=== PATIENT | female | born 1955 | race Caucasian/White ===

== ENCOUNTER → 2016-10-09 | Outpatient (CLI) | payer MEDICARE, OTHER | LOC: LAB.O 14:36 | PROVIDERS: ATTEND Nurse Practitioner Family | DX: R19.7 Diarrhea, unspecified (principal); R10.10 Upper abdominal pain, unspecified; E03.9 Hypothyroidism, unspecified ==

== ENCOUNTER → 2016-10-15 | Outpatient (CLI) | payer MEDICARE, OTHER | LOC: LAB.O 09:28 | PROVIDERS: ATTEND Nurse Practitioner Family | DX: R19.7 Diarrhea, unspecified (principal); R10.10 Upper abdominal pain, unspecified; E03.9 Hypothyroidism, unspecified ==

== ENCOUNTER → 2017-02-07 | Outpatient (CLI) | payer MEDICARE, OTHER ==
--- NOTE | 2017-02-07 14:27 | RAD ---
EXAM DESCRIPTION: Shoulder,Right 2 or More Views CLINICAL HISTORY: 61 years, Female, SHOULDER PAIN COMPARISON: None. FINDINGS: No fracture or dislocation. Subacromial space almost completely lost compatible chronic rotator cuff injury. Mild acromioclavicular degenerative change. IMPRESSION: No fracture or dislocation. Probable chronic rotator cuff injury Electronically signed by: Lane Holman MD 02/07/2017 2:26 PM CDT
--- NOTE | 2017-02-07 14:29 | RAD ---
EXAM DESCRIPTION: Hip,Right 2 Views CLINICAL HISTORY: 61 years, Female, HIP PAIN COMPARISON: None. FINDINGS: No definite fracture or dislocation. Moderate narrowing superolaterally with spurring and sclerosis. Slight irregularity of the lateral femoral head neck junction is a normal variant often associated with impingement. IMPRESSION: Fairly advanced arthritic narrowing of the hip joint particularly laterally with spurring. No fracture or dislocation Electronically signed by: Lane Holman MD 02/07/2017 2:27 PM CDT
--- NOTE | 2017-02-07 14:31 | RAD ---
EXAM DESCRIPTION: Pelvis CLINICAL HISTORY: 61 years, Female, HIP PAIN COMPARISON: None. FINDINGS: No fracture. Moderate degenerative narrowing of both hips, more on right. Pelvic ring intact. Degenerative changes lower lumbar spine. IMPRESSION: Degenerative changes of both hips more on the right. No fracture. Electronically signed by: Lane Holman MD 02/07/2017 2:30 PM CDT
== END | disposition home or self-care (01) ==
LOC: RAD 07:19
PROVIDERS: ATTEND Orthopaedic Surgery
DX: M25.551 Pain in right hip (principal); M25.511 Pain in right shoulder

== ENCOUNTER → 2017-02-12 | Outpatient (CLI) | payer MEDICARE, OTHER | END | disposition home or self-care (01) | LOC: LAB.O 14:59 | PROVIDERS: ATTEND Nurse Practitioner Family | DX: I10 Essential (primary) hypertension (principal); E53.8 Deficiency of other specified B group vitamins; E03.9 Hypothyroidism, unspecified ==

== ENCOUNTER → 2017-07-02 | Outpatient (CLI) | payer MEDICARE, OTHER ==
--- NOTE | 2017-07-03 16:51 | RAD ---
EXAM DESCRIPTION: Hip,Right 2 Views CLINICAL HISTORY: 61 years, Female, RT HIP PAIN COMPARISON: February 07, 2017 TECHNIQUE: AP and frog leg lateral views of the hip FINDINGS: AP and frog leg lateral views right hip shows severe arthritic changes of the right hip joint with complete loss of the joint space. Subchondral eburnation is observed. There is no fracture or bone lesion. IMPRESSION: 1. Advanced severe osteoarthritis right hip Electronically signed by: Osmar Gunn MD 07/03/2017 4:49 PM CDT
== END | disposition home or self-care (01) ==
LOC: RAD 10:27
PROVIDERS: ATTEND Nurse Practitioner Family
DX: M25.551 Pain in right hip (principal)

== ENCOUNTER → 2017-10-16 | Outpatient (CLI) | payer MEDICARE, OTHER | LOC: LAB.O 11:08 | PROVIDERS: ATTEND Orthopaedic Surgery | DX: Z51.81 Encounter for therapeutic drug level monitoring (principal); Z98.890 Other specified postprocedural states ==

== ENCOUNTER → 2017-10-20 | Outpatient (CLI) | payer MEDICARE, OTHER | LOC: LAB.O 09:53 | PROVIDERS: ATTEND Orthopaedic Surgery | DX: Z51.81 Encounter for therapeutic drug level monitoring (principal); Z96.641 Presence of right artificial hip joint ==

== ENCOUNTER → 2017-10-23 | Outpatient (CLI) | payer MEDICARE, OTHER | LOC: LAB.O 09:59 | PROVIDERS: ATTEND Orthopaedic Surgery | DX: Z51.81 Encounter for therapeutic drug level monitoring (principal) ==

== ENCOUNTER → 2017-10-27 | Outpatient (CLI) | payer MEDICARE, OTHER | LOC: LAB.O 12:08 | PROVIDERS: ATTEND Orthopaedic Surgery | DX: Z51.81 Encounter for therapeutic drug level monitoring (principal); Z98.890 Other specified postprocedural states; Z96.641 Presence of right artificial hip joint ==

== ENCOUNTER → 2017-12-03 | Outpatient (CLI) | payer MEDICARE, OTHER | LOC: LAB.O 10:59 | PROVIDERS: ATTEND Nurse Practitioner Family | DX: R29.898 Other symptoms and signs involving the musculoskeletal system (principal); E11.9 Type 2 diabetes mellitus without complications ==

== ENCOUNTER → 2017-12-05 | Outpatient (CLI) | payer MEDICARE, OTHER | LOC: LAB.O 09:31 | PROVIDERS: ATTEND Nurse Practitioner Family | DX: E87.6 Hypokalemia (principal) ==

== ENCOUNTER → 2017-12-09 | Outpatient (CLI) | payer MEDICARE, OTHER | LOC: LAB.O 10:21 | PROVIDERS: ATTEND Nurse Practitioner Family | DX: E87.6 Hypokalemia (principal); D72.828 Other elevated white blood cell count; Z51.81 Encounter for therapeutic drug level monitoring ==

== ENCOUNTER → 2017-12-12 | Outpatient (CLI) | payer MEDICARE, OTHER ==
--- NOTE | 2017-12-12 17:11 | RAD ---
EXAM DESCRIPTION: Hip,Right 2 Views CLINICAL HISTORY: HIP INJURY COMPARISON: None. TECHNIQUE: 4 views right FINDINGS: A right total hip arthroplasty is observed in place. Positioning is anatomic. No fracturing is detected. IMPRESSION: Right total hip arthroplasty. No fracturing is detected. Electronically signed by: Petr Welsh MD 12/12/2017 5:08 PM CDT
== END ==
LOC: RAD 16:28
PROVIDERS: ATTEND Nurse Practitioner Family
DX: S76.001A Unspecified injury of muscle, fascia and tendon of right hip, initial encounter (principal)

== ENCOUNTER → 2018-07-30 | Outpatient (CLI) | payer MEDICARE, OTHER ==
--- NOTE | 2018-07-30 16:05 | RAD ---
PROCEDURE: Ribs,Left 2 Views Clinical History: LEFT SIDED RIB FXS Indication: Same as above Comparison: None . Technique: Two Views of the left sided ribs were done Findings: There is a probable nondisplaced fracture at the costochondral junction of the left fifth rib The left clavicle and the adjacent shoulder joint do not show any evidence of bony trauma. There is no visualization of any periosteal reactions. There are no discrete airspace infiltrates, pneumothoraces or pleural effusions in the visualized lung velasquez. The soft tissues are radiographically unremarkable. There is no visualization of any radiopaque foreign bodies in the evaluated soft tissues. Nondisplaced acute rib fractures are frequently radiographically occult. Impression: There is a probable nondisplaced fracture at the costochondral junction of the left fifth rib Location of Interpretation: Teleradiology Electronically signed by: Jordan Dykes MD 07/30/2018 4:03 PM [facility] Workstation: [id number]
== END ==
LOC: RAD 15:09
PROVIDERS: ATTEND Nurse Practitioner Family
DX: S22.42XA Multiple fractures of ribs, left side, initial encounter for closed fracture (principal)

== ENCOUNTER 2018-09-10 17:41 | Emergency (ER) | payer MEDICARE, OTHER ==
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
[2018-09-10] MEDS ORDERED: SODIUM CHLORIDE 0.9% 1000ML 1,000 ML IVS ONE ×2 (18:04→19:19)
[2018-09-10] MEDS ORDERED: MORPHINE SULFATE INJ 10 MG/ML VIAL IV ONE (18:20)
--- NOTE | 2018-09-10 18:50 | RAD ---
EXAM: Right shoulder two views CLINICAL INDICATION: Right shoulder pain COMPARISON: 02/07/2017 FINDINGS: Two views of the right shoulder reveal no acute fracture or dislocation. There are mild degenerative changes of the AC joint. The osseous structures are otherwise intact and unremarkable. IMPRESSION: No acute fracture or dislocation. Electronically signed by: Jair Ceja MD 09/10/2018 6:49 PM [facility]
--- NOTE | 2018-09-10 18:50 | RAD ---
EXAM: Hand,Right 3 Views CLINICAL INDICATION: Right hand trauma, pain COMPARISON: There is no previous study for comparison. FINDINGS: Three views of the right hand reveal no acute fracture or dislocation. There are moderate degenerative changes of the first carpometacarpal joint and mild to moderate degenerative changes of the interphalangeal joints of the fingers and thumb. The osseous structures are otherwise intact and unremarkable. IMPRESSION: Degenerative changes as described above. No fracture or acute process. Electronically signed by: Jair Ceja MD 09/10/2018 6:48 PM [facility]
--- NOTE | 2018-09-10 18:51 | RAD ---
EXAM: Knee,Right Complete CLINICAL INDICATION: Right knee pain COMPARISON: There is no previous study for comparison. FINDINGS: Three views of the right knee reveal postsurgical changes from knee arthroplasty. The arthroplasty components appear to be in the expected position and alignment. The joint spaces are preserved. There is no evidence of any abnormal periprosthetic lucency, fracture, knee joint effusion, foreign body, bony destruction, or other complication. IMPRESSION: Postsurgical changes from right knee arthroplasty with no radiographic evidence of any complication at this time. Electronically signed by: Jair Ceja MD 09/10/2018 6:49 PM [facility]
--- NOTE | 2018-09-10 19:45 | CT ---
EXAM: Head CLINICAL INDICATION: Trauma, head pain COMPARISON: There is no previous study for comparison. TECHNIQUE: The CT scan was done using contiguous axial 5 mm sections through the brain. This exam was performed according to our departmental dose-optimization program, which includes automated exposure control, adjustment of the mA and/or kV according to patient size and/or use of iterative reconstruction technique. FINDINGS: There is no midline shift, mass effect, or extraaxial fluid collection. There is no evidence of acute intracranial hemorrhage, mass lesion, or cerebral edema. The ventricles and cortical sulci are normal for the patient's age. Bone window images reveal no evidence of a skull fracture. IMPRESSION: No evidence of an acute intracranial process. Electronically signed by: Jair Ceja MD 09/10/2018 7:44 PM [employer]
--- NOTE | 2018-09-10 19:46 | CT ---
EXAM: Cervical Spine CLINICAL INDICATION: Trauma, pain COMPARISON: There is no previous study for comparison. TECHNIQUE: The CT scan was done using contiguous axial 3mm sections through the cervical spine with sagittal and coronal reconstructions. This exam was performed according to our departmental dose-optimization program, which includes automated exposure control, adjustment of the mA and/or kV according to patient size and/or use of iterative reconstruction technique. FINDINGS: There is no fracture or subluxation. The prevertebral soft tissues are normal. The bilateral facet joint alignment is normal. Moderate degenerative disease is noted at the C5-6 level manifested by disc space narrowing. The osseous structures otherwise appear intact and unremarkable. IMPRESSION: No evidence of acute traumatic injury. Electronically signed by: Jair Ceja MD 09/10/2018 7:45 PM [employer]
--- NOTE | 2018-09-10 19:52 | CT ---
EXAM DESCRIPTION: Abdomen/Pelvis w/Contrast (accession [id number]), Chest w/Contrast (accession [id number]) CLINICAL HISTORY:62 years Female, TRAUMA Comparison: None TECHNIQUE: Contiguous axial CT images of the chest. Sagittal and coronal reformats were obtained. This exam was performed according to our departmental dose-optimization program, which includes automated exposure control, adjustment of the mA and/or kV according to patient size and/or use of iterative reconstruction technique. FINDINGS: Lungs: No focal lung consolidation. No pleural effusion. No pneumothorax. Thoracic aorta: Unremarkable. Heart: Unremarkable. Mediastinum: No pathologic sized middle mediastinal lymphadenopathy. Tracheobronchial tree: Unremarkable. Bones: Fractures involving the lateral right fourth, fifth, sixth, seventh ribs. Multiple old left rib fractures. Soft tissues: Unremarkable IMPRESSION: Multiple lateral right rib fractures. No pneumothorax. EXAM DESCRIPTION: Abdomen/Pelvis w/Contrast (accession [id number]), Chest w/Contrast (accession [id number]) CLINICAL HISTORY:62 years Female, TRAUMA Comparison: None TECHNIQUE: Contiguous axial images of the abdomen and pelvis were obtained followed by reconstruction images. This exam was performed according to our departmental dose-optimization program, which includes automated exposure control, adjustment of the mA and/or kV according to patient size and/or use of iterative reconstruction technique. FINDINGS: Liver:Unremarkable. No focal liver lesion. Gallbladder:Cholecystectomy clips seen in gallbladder fossa. Spleen:Unremarkable Pancreas: Pancreas is unremarkable. Adrenal glands:Within normal limits. Kidneys/ureters:Within normal limits Bladder:Unremarkable. Pelvic organs: No acute abnormality Vascular structures: within normal limits Peritoneum: No free fluid. Lymph nodes: No abnormal lymph nodes. Stomach/small bowel/colon: Moderate size hiatal hernia. Small bowel is unremarkable. Marked colonic stool. No bowel wall thickening. Appendix: No evidence of appendicitis. Bones: No acute osseous abnormality. Right hip arthroplasty. Soft tissues: Unremarkable.. IMPRESSION: No acute intra-abdominal abnormality. Electronically signed by: Scooter Trivedi DO 09/10/2018 7:51 PM [facility]
--- NOTE | 2018-09-10 19:52 | CT ---
EXAM DESCRIPTION: Abdomen/Pelvis w/Contrast (accession [id number]), Chest w/Contrast (accession [id number]) CLINICAL HISTORY:62 years Female, TRAUMA Comparison: None TECHNIQUE: Contiguous axial CT images of the chest. Sagittal and coronal reformats were obtained. This exam was performed according to our departmental dose-optimization program, which includes automated exposure control, adjustment of the mA and/or kV according to patient size and/or use of iterative reconstruction technique. FINDINGS: Lungs: No focal lung consolidation. No pleural effusion. No pneumothorax. Thoracic aorta: Unremarkable. Heart: Unremarkable. Mediastinum: No pathologic sized middle mediastinal lymphadenopathy. Tracheobronchial tree: Unremarkable. Bones: Fractures involving the lateral right fourth, fifth, sixth, seventh ribs. Multiple old left rib fractures. Soft tissues: Unremarkable IMPRESSION: Multiple lateral right rib fractures. No pneumothorax. EXAM DESCRIPTION: Abdomen/Pelvis w/Contrast (accession [id number]), Chest w/Contrast (accession [id number]) CLINICAL HISTORY:62 years Female, TRAUMA Comparison: None TECHNIQUE: Contiguous axial images of the abdomen and pelvis were obtained followed by reconstruction images. This exam was performed according to our departmental dose-optimization program, which includes automated exposure control, adjustment of the mA and/or kV according to patient size and/or use of iterative reconstruction technique. FINDINGS: Liver:Unremarkable. No focal liver lesion. Gallbladder:Cholecystectomy clips seen in gallbladder fossa. Spleen:Unremarkable Pancreas: Pancreas is unremarkable. Adrenal glands:Within normal limits. Kidneys/ureters:Within normal limits Bladder:Unremarkable. Pelvic organs: No acute abnormality Vascular structures: within normal limits Peritoneum: No free fluid. Lymph nodes: No abnormal lymph nodes. Stomach/small bowel/colon: Moderate size hiatal hernia. Small bowel is unremarkable. Marked colonic stool. No bowel wall thickening. Appendix: No evidence of appendicitis. Bones: No acute osseous abnormality. Right hip arthroplasty. Soft tissues: Unremarkable.. IMPRESSION: No acute intra-abdominal abnormality. Electronically signed by: Scooter Trivedi DO 09/10/2018 7:[address] [facility]
[2018-09-10] MEDS ORDERED: MORPHINE SULFATE INJ 10 MG/ML VIAL IV PRN (20:32)
[2018-09-10 20:57] VITALS: TEMP 97.1; O2SAT 99
[2018-09-10] MEDS ORDERED: NEOMYCIN-BACITRACIN-POLYMYXIN 0.9 GM UD TOP ONE (20:59)
[2018-09-10 21:26] VITALS: BP 143/70
== END 2018-09-10 21:26 | disposition short-term general hospital (02) ==
LOC: ER 17:41
DX: S22.41XA Multiple fractures of ribs, right side, initial encounter for closed fracture (principal); S40.211A Abrasion of right shoulder, initial encounter; M79.641 Pain in right hand; M25.561 Pain in right knee; M50.322 Other cervical disc degeneration at C5-C6 level; R51 Headache; J45.909 Unspecified asthma, uncomplicated; I10 Essential (primary) hypertension; E07.9 Disorder of thyroid, unspecified; Z88.0 Allergy status to penicillin; Y92.89 Other specified places as the place of occurrence of the external cause; V98.8XXA Other specified transport accidents, initial encounter
CPT/HCPCS: 70450; 71260; 72125; 73030; 73130; 73562; 74177; 80053; 81001; 83690; 85025; J2270; J7030

== ENCOUNTER 2018-09-14 16:40 | Emergency (ER) | payer MEDICARE, OTHER ==
[2018-09-14 17:05] VITALS: TEMP 99.7; O2SAT 99
--- NOTE | 2018-09-14 17:40 | CT ---
PROCEDURE: CT Head Without Intravenous Contrast CLINICAL INDICATION: The patient is 62 years old and is Female; head injury TECHNIQUE: Axial computed tomography images of the head/brain without intravenous contrast. Sagittal and coronal reformatted images were created and reviewed. This CT exam was performed using one or more of the following dose reduction techniques: automated exposure control, adjustment of the mA and/or kV according to patient size, and/or use of iterative reconstruction technique. COMPARISON: September 10, 2018 FINDINGS: LIMITATIONS: Portions of the examination limited due to beam hardening artifact. BRAIN: No hemorrhage. No significant white matter disease. No edema. VENTRICLES: Normal. No ventriculomegaly. BONES/JOINTS: Normal. No acute fracture. SOFT TISSUES: Normal. SINUSES: Unremarkable as visualized. No acute sinusitis. MASTOID AIR CELLS: Unremarkable as visualized. No mastoid effusion. IMPRESSION: No acute intracranial abnormality. Electronically signed by: Pradeep Carpenter MD 09/14/2018 5:39 PM [facility]
[2018-09-14] MEDS ORDERED: traMADol HCL 50 MG (ER DISP) # 6 TABS PO ONE (17:59)
[2018-09-14] MEDS ORDERED: traMADol 37.5MG/APAP 325MG 1 EA TAB PO ONE (17:59)
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
[2018-09-14 19:09] VITALS: BP 139/81
== END 2018-09-14 18:15 | disposition home or self-care (01) ==
LOC: ER 16:40
DX: S09.90XA Unspecified injury of head, initial encounter (principal); J45.909 Unspecified asthma, uncomplicated; I10 Essential (primary) hypertension; E07.9 Disorder of thyroid, unspecified; Y92.810 Car as the place of occurrence of the external cause; W22.8XXA Striking against or struck by other objects, initial encounter; Z88.0 Allergy status to penicillin

== ENCOUNTER → 2018-12-01 | Outpatient (CLI) | payer MEDICARE, OTHER ==
--- NOTE | 2018-12-01 11:47 | RAD ---
EXAM DESCRIPTION: Chest,2 Views CLINICAL HISTORY: HYPERTENSION COMPARISON: Previous study July 30, [address] chest September 10, 2018 TECHNIQUE: PA/lateral FINDINGS: Old healed rib fractures on the right. Hiatal hernia behind the heart. Heart size is normal with normal pulmonary vascularity. No pleural effusion or pneumothorax. Lungs are clear with no consolidating infiltrate. Lateral view shows intact sternum and spurring in the mid to lower T-spine with old lower thoracic compression. IMPRESSION: No acute process is identified in the chest. Electronically signed by: Carlton Toribio MD 12/01/2018 11:44 AM CDT
== END ==
LOC: LAB.O 10:35
PROVIDERS: ATTEND Nurse Practitioner Family
DX: I10 Essential (primary) hypertension (principal)

== ENCOUNTER → 2019-08-12 | Outpatient (CLI) | payer MEDICARE, OTHER | LOC: LAB.O 10:38 | PROVIDERS: ATTEND Registered Nurse General Practice | DX: R60.0 Localized edema (principal); R53.1 Weakness ==

== ENCOUNTER → 2019-08-23 | Outpatient (CLI) | payer MEDICARE, OTHER | LOC: LAB.O 16:58 | PROVIDERS: ATTEND Nurse Practitioner Family | DX: I50.89 Other heart failure (principal) ==

== ENCOUNTER → 2019-09-30 | Outpatient (CLI) | payer MEDICARE, OTHER ==
--- NOTE | 2019-09-30 16:03 | RAD ---
EXAM DESCRIPTION: Foot,Right 3 Views CLINICAL HISTORY: 63 years Female, BUNION COMPARISON: None. 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 Osteopenia. Lisfranc alignment is maintained. No acute fracture or dislocation. Severe midfoot and tibiotalar osteoarthritis. Os trigonum. Calcaneal enthesophytes. IMPRESSION: No evidence of acute osseous abnormality. Electronically signed by: Tremaine Goldman MD 09/30/2019 4:01 PM [facility]
--- NOTE | 2019-09-30 16:07 | RAD ---
EXAM DESCRIPTION: Foot,Left 3 Views CLINICAL HISTORY: 63 years Female, BUNION COMPARISON: None. Findings: Three radiographs Metatarsus primum varus hallux valgus with soft tissue bunion. Osteopenia. Pes planus. Severe midfoot and tibiotalar osteoarthritis. Calcaneal enthesophytes. Suspect a subacute nondisplaced fourth metatarsal base fracture. Lisfranc alignment is maintained. IMPRESSION: Suspect a subacute nondisplaced fourth metatarsal base fracture. Electronically signed by: Tremaine Goldman MD 09/30/2019 4:05 PM [facility]
== END ==
LOC: RAD 11:54
PROVIDERS: ATTEND Podiatrist Foot & Ankle Surgery
DX: M20.11 Hallux valgus (acquired), right foot (principal); M20.12 Hallux valgus (acquired), left foot; M20.41 Other hammer toe(s) (acquired), right foot; M20.42 Other hammer toe(s) (acquired), left foot; M21.611 Bunion of right foot; M21.612 Bunion of left foot

== ENCOUNTER → 2019-12-14 | Outpatient (CLI) | payer MEDICARE, OTHER | LOC: LAB.O 16:10 | PROVIDERS: ATTEND Registered Nurse General Practice | DX: R53.83 Other fatigue (principal) ==

== ENCOUNTER 2020-02-25 15:53 | Emergency (ER) | payer MEDICARE, OTHER ==
--- NOTE | 2020-02-25 15:57 | ED.PDOC ---
History of Present Illness - General Chief Complaint: Neck Injury/Pain Stated Complaint: Fatigue Time Seen by Provider: 02/25/20 15:57 Source: patient, RN notes reviewed, Vital Signs reviewed Exam Limitations: no limitations - History of Present Illness Initial Comments: This is a 64-year-old female with history of gastric sleeve surgery performed in November 2019. She is presenting today with generalized weakness, fatigue, malaise ongoing since her surgery in November. She is followed up with her primary care doctor several times and had blood work drawn, no causes been clearly identified. She does have a history of anemia and has received transfusions before in the past. She denies any vomiting blood, blood in stool. She denies any fever, chest pain, shortness of breath. She does state that she gets dizzy whenever she goes from sitting to standing or bends over too quickly. She denies any syncopal episodes. She is here because she read on a [place] support group that "IV therapy" helps with the symptoms, but she does not know what medication/therapy was given to these patients. Allergies/Adverse Reactions: Allergies Penicillins Allergy (Verified 02/25/20 16:16) Home Medications: Ambulatory Orders Tramadol HCl [Ultram] 50 mg PO TID PRN 09/14/18 Desvenlafaxine Succinate [Desvenlafaxine ER] 100 mg PO DAILY 02/25/20 Fluticasone/Salmeterol 250/50 [Advair Diskus] 1 puff INH BID 02/25/20 Gabapentin [Neurontin] 100 mg PO QAM 02/25/20 Gabapentin [Neurontin] 200 mg PO QPM 02/25/20 Lubiprostone [Amitiza] 24 mcg PO DAILY 02/25/20 Magnesium Oxide [Mag-Ox Tab] 400 mg PO DAILY #60 tab 02/25/20 Potassium Chloride [K-Tab] 90 meq PO DAILY 02/25/20 Potassium Phosphate Monobasic [K-Phos] 500 mg PO Q6H #120 tab 02/25/20 Progesterone Micronized [Progesterone] 200 mg PO BID 02/25/20 RX: Hydrochlorothiazide 12.5 mg PO DAILY 02/25/20 Thyroid [Sap Developer Thyroid 90] 180 mg PO DAILY 02/25/20 Review of Systems - Review of Systems Constitutional: States: malaise. Denies: chills, diaphoresis, fever EENTM: Denies: ear pain, nose congestion, throat pain, throat swelling, mouth pain Respiratory: Denies: orthopnea, short of breath, stridor, wheezing Cardiology: Denies: chest pain, edema, palpitations, syncope Gastrointestinal/Abdominal: Denies: abdominal pain, constipation, nausea, vomiting Genitourinary: Denies: dysuria, hematuria Musculoskeletal: Denies: joint pain, joint swelling, muscle pain, muscle stiffness Skin: Denies: lesions, rash Neurological: States: other - Lightheadedness. Denies: headache, numbness, paresthesia, tingling, weakness Endocrine: States: no symptoms reported Hematologic/Lymphatic: States: no symptoms reported Past Medical History (General) - Patient Medical History Hx Seizures: No Hx Stroke: No Hx Dementia: No Hx Asthma: Yes Hx of COPD: No Hx Cardiac Disorders: No Hx Congestive Heart Failure: No Hx Pacemaker: No Hx Hypertension: Yes Hx Thyroid Disease: Yes Hx Diabetes: No Hx Gastroesophageal Reflux: No - IBS Hx Renal Disease: No Hx Cancer: No Hx of HIV: No Hx Hepatitis C: No Hx MRSA: No - Vaccination History Hx Tetanus, Diphtheria Vaccination: Yes Hx Influenza Vaccination: No Hx Pneumococcal Vaccination: No - Social History Hx Tobacco Use: No Hx Chewing Tobacco Use: No Hx Alcohol Use: No Hx Substance Use: No Hx Substance Use Treatment: No Hx Depression: No Hx Physical Abuse: No Hx Emotional Abuse: No Hx Suspected Abuse: No Family Medical History - Family History Mother Family History: Unknown Physical Exam - Physical Exam General Appearance: Alert, Comfortable, Obese Eye Exam: bilateral normal Ears, Nose, Throat: hearing grossly normal, normal ENT inspection Neck: non-tender, full range of motion, supple Respiratory: chest non-tender, lungs clear, normal breath sounds Cardiovascular/Chest: regular rate, rhythm, no edema, no gallop, no JVD Gastrointestinal/Abdominal: non tender, soft Back Exam: normal inspection, no CVA tenderness, no vertebral tenderness Extremity: normal range of motion, non-tender, normal inspection Neurologic: no motor/sensory deficits, alert, normal mood/affect, oriented x 3 Skin Exam: normal color, warm/dry Progress - Progress Progress: 02/25/20 19:28 Rechecked. Discussed lab findings and plan for discharge home. Recommended follow-up with PCP in 3 to 5 days for recheck and to discuss low TSH levels and possible adjustment of her thyroid medication. Will start potassium phosphate as well as magnesium supplement. Recommended recheck these electrolytes next week. Strict warnings given to return the emergency room for worsening fatigue, syncope, chest pain, shortness of breath, or any other concerns DDX: Dehydration, renal failure, anemia, electrolyte disorder, rhabdomyolysis 64-year-old female with history of gastric sleeve surgery presenting with chronic, unremitting fatigue ongoing since November of this year just after surgery. Her potassium and phosphate today are low. Potassium is low end of normal, despite taking high-dose p.o. supplementation of potassium. It is unclear whether this is related to her hydrochlorothiazide or malabsorption from gastric sleeve, felt more likely multifactorial. Recommended follow-up with PCP in 3 to 5 days for recheck. Strict warnings given to return the emergency room for worsening symptoms. Magdaleno Harper DO [facility] #[id number] - Results/Orders Results/Orders: EKG reviewed by me at 1619. Sinus rhythm rate of 88, left axis, normal intervals, LVH, no acute ischemic changes EXAM DESCRIPTION: Chest,1 View CLINICAL HISTORY: fatigue COMPARISON: December 01, 2018 IMPRESSION: Single AP portable upright view of the chest shows cardiac silhouette and pulmonary vasculature to be within normal limits. Lungs are normally aerated and clear. No obvious pleural effusion or pneumothorax is seen. Right reverse shoulder arthroplasty changes are seen. Remote healed right-sided rib fracture is seen. Electronically signed by: Augustine Gusman MD 02/25/2020 4:32 PM CDT 02/25/20 16:08 Pulse Oximetry Assessment DAILY 02/25/20 16:15 EKG STAT Laboratory Results - last 24 hr 02/25/20 02/25/20 02/25/20 16:46 16:57 16:57 WBC 7.0 RBC 4.06 L Hgb 12.6 Hct 37.8 MCV 93.0 MCH 31.1 H MCHC 33.4 RDW 14.5 Plt Count 221 MPV 8.7 Absolute Neuts (auto) 4.50 Absolute Lymphs (auto) 1.60 Absolute Monos (auto) 0.70 Absolute Eos (auto) 0.20 Absolute Basos (auto) 0.00 Neutrophils % 64.0 Lymphocytes % 22.2 Monocytes % 10.1 H Eosinophils % 3.4 Basophils % 0.3 Sodium 136 Potassium 3.6 Chloride 113 H Carbon Dioxide 18 L Anion Gap 8.6 L BUN 17 Creatinine 0.91 BUN/Creatinine Ratio 18.7 Random Glucose 128 H Serum Osmolality 275.1 Calcium 8.7 Phosphorus 2.0 L Magnesium 1.7 L Total Bilirubin 0.5 AST 20 ALT 18 Alkaline Phosphatase 145 H Creatine Kinase Troponin I 0.02 B-Natriuretic Peptide 125.0 H Serum Total Protein 6.1 L Albumin 3.2 Globulin 2.9 Albumin/Globulin Ratio 1.1 TSH < 0.06 L Free T4 Urine Color Urine Appearance Urine pH Ur Specific [place] Urine Protein Urine Glucose (UA) Urine Ketones Urine Blood Urine Nitrite Urine Bilirubin Urine Urobilinogen Ur Leukocyte Esterase Urine RBC Urine WBC Ur Epithelial Cells Urine Bacteria Urine Yeast 02/25/20 02/25/20 02/25/20 16:57 17:20 17:50 WBC RBC Hgb Hct MCV MCH MCHC RDW Plt Count MPV Absolute Neuts (auto) Absolute Lymphs (auto) Absolute Monos (auto) Absolute Eos (auto) Absolute Basos (auto) Neutrophils % Lymphocytes % Monocytes % Eosinophils % Basophils % Sodium Potassium Chloride Carbon Dioxide Anion Gap BUN Creatinine BUN/Creatinine Ratio Random Glucose Serum Osmolality Calcium Phosphorus Magnesium Total Bilirubin AST ALT Alkaline Phosphatase Creatine Kinase 19 L Troponin I B-Natriuretic Peptide Serum Total Protein Albumin Globulin Albumin/Globulin Ratio TSH Free T4 1.16 Urine Color Yellow Urine Appearance Sl cloudy Urine pH 5.5 Ur Specific [place] >= 1.030 Urine Protein Negative Urine Glucose (UA) Negative Urine Ketones Negative Urine Blood Trace-lysed H Urine Nitrite Negative Urine Bilirubin Negative Urine Urobilinogen 0.2 Ur Leukocyte Esterase Trace H Urine RBC 0-1 Urine WBC 3-5 H Ur Epithelial Cells 10-20 Urine Bacteria Rare Urine Yeast Rare Departure - Departure Clinical Impression: Hypomagnesemia, Hypophosphatemia, S/P gastric surgery, Low thyroid stimulating hormone (TSH) level Fatigue Qualifiers: Fatigue type: unspecified Qualified Code(s): R53.83 - Other fatigue Disposition: Discharge to Home or Self Care Condition: Good Departure Forms: ED Discharge - Pt. Copy, Patient Portal Self Enrollment Instructions: Fatigue (DC), Low Magnesium Level (DC) Referrals: SIMON VALDIVIA IV, HUM[employer] RELATIONS TEACHER [Primary Care Provider] - 1-5 Days Prescriptions: Magnesium Oxide [Mag-Ox Tab] 400 mg PO DAILY #60 tab Potassium Phosphate Monobasic [K-Phos] 500 mg PO Q6H #120 tab Home Medications: Ambulatory Orders Tramadol HCl [Ultram] 50 mg PO TID PRN 09/14/18 Desvenlafaxine Succinate [Desvenlafaxine ER] 100 mg PO DAILY 02/25/20 Fluticasone/Salmeterol 250/50 [Advair Diskus] 1 puff INH BID 02/25/20 Gabapentin [Neurontin] 100 mg PO QAM 02/25/20 Gabapentin [Neurontin] 200 mg PO QPM 02/25/20 Lubiprostone [Amitiza] 24 mcg PO DAILY 02/25/20 Magnesium Oxide [Mag-Ox Tab] 400 mg PO DAILY #60 tab 02/25/20 Potassium Chloride [K-Tab] 90 meq PO DAILY 02/25/20 Potassium Phosphate Monobasic [K-Phos] 500 mg PO Q6H #120 tab 02/25/20 Progesterone Micronized [Progesterone] 200 mg PO BID 02/25/20 RX: Hydrochlorothiazide 12.5 mg PO DAILY 02/25/20 Thyroid [Sap Developer Thyroid 90] 180 mg PO DAILY 02/25/20
[2020-02-25] MEDS ORDERED: SODIUM CHLORIDE 0.9% (FLUSH) 10 ML SYG IV PRN (16:06)
--- NOTE | 2020-02-25 16:34 | RAD ---
EXAM DESCRIPTION: Chest,1 View CLINICAL HISTORY: fatigue COMPARISON: December 01, 2018 IMPRESSION: Single AP portable upright view of the chest shows cardiac silhouette and pulmonary vasculature to be within normal limits. Lungs are normally aerated and clear. No obvious pleural effusion or pneumothorax is seen. Right reverse shoulder arthroplasty changes are seen. Remote healed right-sided rib fracture is seen. Electronically signed by: Augustine Gusman MD 02/25/2020 4:32 PM CDT
[2020-02-25] MEDS ORDERED: MAGNESIUM SULFATE PREMIX 2GM 2 GM in PREMIX BAG 1 BAG IVPB ONE (18:24)
[2020-02-25] MEDS ORDERED: POTASSIUM PHOSPHATE 500 MG TAB PO ONE (18:25)
[2020-02-25] MEDS ORDERED: SODIUM CHLORIDE 0.9% 1000ML 1,000 ML IVS ONE (18:29)
[2020-02-25 19:29] VITALS: BP 138/72; TEMP 97.3; O2SAT 100
== END 2020-02-25 19:25 | disposition home or self-care (01) ==
LOC: ER 15:53
DX: E83.42 Hypomagnesemia (principal); I10 Essential (primary) hypertension; R53.83 Other fatigue; E83.39 Other disorders of phosphorus metabolism
CPT/HCPCS: 36415; 71045; 80053; 81001; 82550; 83735; 83880; 84100; 84439; 84443; 84484; 85025; 93005; J3475; J7030

== ENCOUNTER 2020-03-05 16:45 | Emergency (ER) | payer MEDICARE, OTHER ==
[2020-03-05] MEDS ORDERED: methylPREDNISolone SODIUM SUC 125 MG/2 ML VIAL IM ONE (16:54)
[2020-03-05] MEDS ORDERED: FAMOTIDINE 20 MG TAB PO ONE (16:55)
--- NOTE | 2020-03-05 16:57 | ED.PDOC ---
History of Present Illness - General Chief Complaint: Upper Extremity Injury Stated Complaint: sting Time Seen by Provider: 03/05/20 16:53 Source: patient, Vital Signs reviewed Additional Information: 64yo F reports witnessed wasp sting to left wrist 1 hr prior to arrival. Reports red wasp landed on wrist with immediate pain. Noted erythema isolated to radial aspect left wrist that has continued to burn since incident. Denies SOB, wheezing, chest pain, n/v, numbness/tingling, fall, or other complaints at this time. - History of Present Illness Allergies/Adverse Reactions: Allergies Penicillins Allergy (Verified 02/25/20 16:16) Home Medications: Ambulatory Orders Tramadol HCl [Ultram] 50 mg PO TID PRN 09/14/18 Desvenlafaxine Succinate [Desvenlafaxine ER] 100 mg PO DAILY 02/25/20 Fluticasone/Salmeterol 250/50 [Advair Diskus] 1 puff INH BID 02/25/20 Gabapentin [Neurontin] 100 mg PO QAM 02/25/20 Gabapentin [Neurontin] 200 mg PO QPM 02/25/20 Hydrochlorothiazide 12.5 mg PO DAILY 02/25/20 Lubiprostone [Amitiza] 24 mcg PO DAILY 02/25/20 Magnesium Oxide [Mag-Ox Tab] 400 mg PO DAILY #60 tab 02/25/20 Potassium Chloride [K-Tab] 90 meq PO DAILY 02/25/20 Potassium Phosphate Monobasic [K-Phos] 500 mg PO Q6H #120 tab 02/25/20 Progesterone Micronized [Progesterone] 200 mg PO BID 02/25/20 Thyroid [Freelance Writer Thyroid 90] 180 mg PO DAILY 02/25/20 Famotidine 20 mg PO DAILY PRN #5 tab 03/05/20 Prednisone 10 mg PO DAILY #3 tablet 03/05/20 Review of Systems - Review of Systems Respiratory: Denies: cough, short of breath, stridor Cardiology: Denies: chest pain Skin: States: rash Past Medical History (General) - Patient Medical History Hx Seizures: No Hx Stroke: No Hx Dementia: No Hx Asthma: Yes Hx of COPD: No Hx Cardiac Disorders: No Hx Congestive Heart Failure: No Hx Pacemaker: No Hx Hypertension: Yes Hx Thyroid Disease: Yes Hx Diabetes: No Hx Gastroesophageal Reflux: No - IBS Hx Renal Disease: No Hx Cancer: No Hx of HIV: No Hx Hepatitis C: No Hx MRSA: No - Vaccination History Hx Tetanus, Diphtheria Vaccination: Yes Hx Influenza Vaccination: No Hx Pneumococcal Vaccination: No - Social History Hx Tobacco Use: No Hx Chewing Tobacco Use: No Hx Alcohol Use: No Hx Substance Use: No Hx Substance Use Treatment: No Hx Depression: No Hx Physical Abuse: No Hx Emotional Abuse: No Hx Suspected Abuse: No - Female History Patient : No Family Medical History - Family History Mother Family History: Unknown Physical Exam - Physical Exam General Appearance: Alert, No apparent distress, Well Developed, Well Nourished Eyes, Ears, Nose, Throat Exam: pharynx normal, other - uvula midline, no lingual elevation Neck: non-tender, full range of motion, supple Cardiovascular/Respiratory: regular rate, rhythm, no M/R/G, normal peripheral pulses Back Exam: no CVA tenderness Wrist Exam: normal ROM - LUE: 2+ radial/ulnar pulses, 2sec cap refill, FROM elbow/hand/wrist, 5cm x 5cm area of erythema at radial aspect of right wrist without proximal extension or edema Skin Exam: normal color, warm/dry, rash Progress - Progress Progress: 03/05/20 18:22 Patient with reported witness sting to left wrist from wasp. Reports pain and burning localized to site. Denies snake or other animal. Denies shortness of breath or chest pain. No stridor or urticaria noted, and does not clinically appear anaphylaxis. Low suspicion for cellulitis at this time. FROM hand and wrist and remained neurovascularly intact. No noted further extension of erythema after observational period. ED warnings given, f/u PCP. 03/05/20 18:29 Patient and I wore masks for duration of encounter, and I maintained a distance of 6 feet except for those brief times need for physical exam. Institutional screening protocol for coronavirus performed in triage. Alex Almanza MD #[id number] Departure - Departure Clinical Impression: Sting from hornet, wasp, or bee Time of Disposition: 18:25 Disposition: Discharge to Home or Self Care Condition: Good Departure Forms: ED Discharge - Pt. Copy, Patient Portal Self Enrollment Instructions: DI for Arm Pain Diet: resume usual diet Referrals: SIOMN VALDIVIA IV, [employer]ISHER [Primary Care Provider] - 1-5 Days Prescriptions: Famotidine 20 mg PO DAILY PRN #5 tab PRN Reason: Allergies Prednisone 10 mg PO DAILY #3 tablet Home Medications: Ambulatory Orders Tramadol HCl [Ultram] 50 mg PO TID PRN 09/14/18 Desvenlafaxine Succinate [Desvenlafaxine ER] 100 mg PO DAILY 02/25/20 Fluticasone/Salmeterol 250/50 [Advair Diskus] 1 puff INH BID 02/25/20 Gabapentin [Neurontin] 100 mg PO QAM 02/25/20 Gabapentin [Neurontin] 200 mg PO QPM 02/25/20 Hydrochlorothiazide 12.5 mg PO DAILY 02/25/20 Lubiprostone [Amitiza] 24 mcg PO DAILY 02/25/20 Magnesium Oxide [Mag-Ox Tab] 400 mg PO DAILY #60 tab 02/25/20 Potassium Chloride [K-Tab] 90 meq PO DAILY 02/25/20 Potassium Phosphate Monobasic [K-Phos] 500 mg PO Q6H #120 tab 02/25/20 Progesterone Micronized [Progesterone] 200 mg PO BID 02/25/20 Thyroid [Freelance Writer Thyroid 90] 180 mg PO DAILY 02/25/20 Famotidine 20 mg PO DAILY PRN #5 tab 03/05/20 Prednisone 10 mg PO DAILY #3 tablet 03/05/20 Additional Instructions: You were seen in the [facility] Emergency Department today. Please fill and take the medications as prescribed (if any) and if you were prescribed antibiotics, please complete the full course. You will need further evaluation on an out patient basis. You must follow up with the listed locations and within the time frames indicated in your discharge paperwork (including your PCP in 3-5 days). Failure to follow up with any studies or doctor visits within the timeframe mentioned could result in poor outcome. Your examination today in the ED did not reveal a new or old problem that required immediate surgery or admission to the hospital. However, you should return to the ED if you are not improving as instructed (especially within the first 6 to 24 hours). This may include things such as uncontrolled vomiting, shortness of breath, fever, bleeding, or severe pain in a body part. You should return for any new or worsening emergency symptoms such as chest pain, severe headache, confusion, or severe abdominal pain. Finally, return to the emergency department if you have any concerns not mentioned above that are concerning to you or if you are unable to follow up as instructed above. Thank you for coming to [facility]. It was our pleasure to serve you today and we thank you for your visit.
[2020-03-05 18:05] VITALS: O2SAT 99
[2020-03-05 18:40] VITALS: BP 121/64; TEMP 98.1
== END 2020-03-05 18:36 | disposition home or self-care (01) ==
LOC: ER 16:45
DX: T63.461A Toxic effect of venom of wasps, accidental (unintentional), initial encounter (principal); I10 Essential (primary) hypertension; Y92.9 Unspecified place or not applicable

== ENCOUNTER → 2020-04-03 | Outpatient (CLI) | payer MEDICARE, OTHER ==
--- NOTE | 2020-04-03 18:23 | RAD ---
EXAM DESCRIPTION: Foot,Right 3 Views CLINICAL HISTORY: [place] COMPARISON: None. TECHNIQUE: 3 views right FINDINGS: Diffuse osteopenia is observed. A marked hallux valgus deformity is observed. Degenerative changes are observed in the metatarsal phalangeal joint of the first digit. Distal interphalangeal joint arthritis is observed. Intertarsal arthritis is seen. Tibial talar arthritis is also demonstrated. No fracture is detected. Pes planus is noted. An Achilles enthesophyte is noted. IMPRESSION: Severe degenerative changes are observed throughout the right foot. Electronically signed by: Petr Welsh MD 04/03/2020 6:21 PM CDT
--- NOTE | 2020-04-03 18:25 | RAD ---
EXAM DESCRIPTION: Foot,Left 3 Views CLINICAL HISTORY: [place] COMPARISON: 30 September 2019 TECHNIQUE: 3 views left FINDINGS: A hallux valgus deformity is observed. Osteopenia is noted. Degenerative changes are observed in the metatarsal phalangeal joint of the first digit. Diffuse intertarsal arthritis is observed. Pes planus is noted. An Achilles enthesophyte is seen. IMPRESSION: Diffuse moderately severe degenerative changes are observed. There is been no significant interval change from the previous exam. Electronically signed by: Petr Welsh MD 04/03/2020 6:23 PM CDT
== END ==
LOC: RAD 15:33
PROVIDERS: ATTEND Podiatrist Foot & Ankle Surgery
DX: M20.41 Other hammer toe(s) (acquired), right foot (principal); M20.42 Other hammer toe(s) (acquired), left foot; M19.071 Primary osteoarthritis, right ankle and foot; M19.072 Primary osteoarthritis, left ankle and foot; M21.619 Bunion of unspecified foot

== ENCOUNTER → 2020-06-30 | Outpatient (CLI) | payer MEDICARE, OTHER | LOC: LAB.O 13:01 | PROVIDERS: ATTEND Nurse Practitioner Family | DX: E66.9 Obesity, unspecified (principal) ==

== ENCOUNTER 2020-10-04 11:08 | Emergency (ER) | payer MEDICARE, OTHER ==
[~2020-10-04 11:08] MED LIST: PROPOFOL 200 MG/20 ML VIAL IV ONE; SODIUM CHLORIDE 0.9% 50 ML VIAL ONE
[2020-10-04] MEDS ORDERED: HYDROmorphone HCL INJ 2 MG/ML VIAL IV ONE (11:13)
--- NOTE | 2020-10-04 11:15 | ED.PDOC ---
History of Present Illness - General Time Seen by Provider: 10/04/20 11:12 Source: patient, RN notes reviewed, Vital Signs reviewed, EMS notes reviewed Additional Information: 64-year-old female, presents to the ER because of right hip pain, states she twisted and he felt like a ball call. Patient has had hip replacement on the same hip a little over 2 years ago, patient denies that she may have dislocated her right hip, because it happened before, patient arrive, no IV line no pain medications given, patient is complaining of hip pain patient has an history of asthma - History of Present Illness Timing/Duration: just prior to arrival Hip Pain Location: hip (R) Method of Injury/Prior Injury: twisted Improving Factors: nothing Worsening Factors: nothing Associated Symptoms: denies symptoms Allergies/Adverse Reactions: Allergies Penicillins Allergy (Verified 02/25/20 16:16) Home Medications: Ambulatory Orders Tramadol HCl [Ultram] 50 mg PO TID PRN 09/14/18 Desvenlafaxine Succinate [Desvenlafaxine ER] 100 mg PO DAILY 02/25/20 Fluticasone/Salmeterol 250/50 [Advair Diskus] 1 puff INH BID 02/25/20 Gabapentin [Neurontin] 100 mg PO QAM 02/25/20 Gabapentin [Neurontin] 200 mg PO QPM 02/25/20 Hydrochlorothiazide 12.5 mg PO DAILY 02/25/20 Lubiprostone [Amitiza] 24 mcg PO DAILY 02/25/20 Magnesium Oxide [Mag-Ox Tab] 400 mg PO DAILY #60 tab 02/25/20 Potassium Chloride [K-Tab] 90 meq PO DAILY 02/25/20 Potassium Phosphate Monobasic [K-Phos] 500 mg PO Q6H #120 tab 02/25/20 Progesterone Micronized [Progesterone] 200 mg PO BID 02/25/20 Thyroid [Coffee Grower Thyroid 90] 180 mg PO DAILY 02/25/20 Famotidine 20 mg PO DAILY PRN #5 tab 03/05/20 Prednisone 10 mg PO DAILY #3 tablet 03/05/20 Review of Systems - Review of Systems Constitutional: States: no symptoms reported EENTM: States: no symptoms reported Respiratory: States: no symptoms reported Cardiology: States: no symptoms reported Gastrointestinal/Abdominal: States: no symptoms reported Genitourinary: States: no symptoms reported Musculoskeletal: States: no symptoms reported Skin: States: no symptoms reported Neurological: States: no symptoms reported Endocrine: States: no symptoms reported Hematologic/Lymphatic: States: no symptoms reported Past Medical History (General) - Patient Medical History Hx Seizures: No Hx Stroke: No Hx Dementia: No Hx Asthma: Yes Hx of COPD: No Hx Cardiac Disorders: No Hx Congestive Heart Failure: No Hx Pacemaker: No Hx Hypertension: Yes Hx Thyroid Disease: Yes Hx Diabetes: No Hx Gastroesophageal Reflux: No - IBS Hx Renal Disease: No Hx Cancer: No Hx of HIV: No Hx Hepatitis C: No Hx MRSA: No - Vaccination History Hx Tetanus, Diphtheria Vaccination: Yes Hx Influenza Vaccination: No Hx Pneumococcal Vaccination: No - Social History Hx Tobacco Use: No Hx Chewing Tobacco Use: No Hx Alcohol Use: No Hx Substance Use: No Hx Substance Use Treatment: No Hx Depression: No Hx Physical Abuse: No Hx Emotional Abuse: No Hx Suspected Abuse: No - Female History Patient : No Physical Exam - Physical Exam General Appearance: Well Developed, Well Groomed, Well Hydrated, Well Nourished Eyes, Ears, Nose, Throat Exam: PERRL/EOMI, TMs normal Neck Exam: non-tender, full range of motion, normal alignment, normal inspection, abnormal alignment Cardiovascular/Respiratory: regular rate, rhythm, no M/R/G, normal peripheral pulses, no JVD, normal breath sounds, no respiratory distress Peripheral Pulses: radial,right: 2+, radial,left: 2+ Gastrointestinal/Abdominal: normal bowel sounds, non tender, soft, no organomegaly, no pulsatile mass Extremity Exam: other - decrease range of motion of the right hip Neurologic: gas welder II-XII nml as tested, no motor/sensory deficits, alert, normal mood/affect Skin Exam: normal color Progress - Progress Progress: 64-year-old presents to the ER for hip dislocation, I used culture sedation with 100milligrams of propofol, patient was connected to the monitors, patient had a Mallampati of 1 and ASA of 2 time out take and patient was on oxygen during the entire procedure and crash cart was also available Dora Azar procedure for close reduction, but unfortunately patient did not achieve full sedation, I called Dr. Grijalva to take surgeon, and him with the next dislodges were able to perform the closed reduction without any complicagtions, patient is back to her usual medical baseline 10/04/20 14:52 Departure - Departure Clinical Impression: Hip dislocation, right Qualifiers: Encounter type: initial encounter Qualified Code(s): S73.004A - Unspecified dislocation of right hip, initial encounter Disposition: Discharge to Home or Self Care Condition: Fair Instructions: Hip Dislocation, Hip Dislocation (DC), Moderate Sedation in Adults Diet: full liquid diet Activity: increase activity as tolerated Home Medications: Ambulatory Orders Tramadol HCl [Ultram] 50 mg PO TID PRN 09/14/18 Desvenlafaxine Succinate [Desvenlafaxine ER] 100 mg PO DAILY 02/25/20 Fluticasone/Salmeterol 250/50 [Advair Diskus] 1 puff INH BID 02/25/20 Gabapentin [Neurontin] 100 mg PO QAM 02/25/20 Gabapentin [Neurontin] 200 mg PO QPM 02/25/20 Hydrochlorothiazide 12.5 mg PO DAILY 02/25/20 Lubiprostone [Amitiza] 24 mcg PO DAILY 02/25/20 Magnesium Oxide [Mag-Ox Tab] 400 mg PO DAILY #60 tab 02/25/20 Potassium Chloride [K-Tab] 90 meq PO DAILY 02/25/20 Potassium Phosphate Monobasic [K-Phos] 500 mg PO Q6H #120 tab 02/25/20 Progesterone Micronized [Progesterone] 200 mg PO BID 02/25/20 Thyroid [Coffee Grower Thyroid 90] 180 mg PO DAILY 02/25/20 Famotidine 20 mg PO DAILY PRN #5 tab 03/05/20 Prednisone 10 mg PO DAILY #3 tablet 03/05/20
[2020-10-04] MEDS ORDERED: PROPOFOL 200 MG/20 ML VIAL IV ONE (11:35)
--- NOTE | 2020-10-04 11:44 | RAD ---
EXAM DESCRIPTION: Hip,Right 2 Views CLINICAL HISTORY: hip dislocation FINDINGS/ IMPRESSION: Single radiograph demonstrates dislocation of the femoral component right hip arthroplasty, superiorly displaced about 3.5 cm No periprosthetic fracture or osteolysis Electronically signed by: Vivek Brothers MD 10/04/2020 11:42 AM [facility]
[2020-10-04] MEDS: HYDROmorphone HCL INJ 2 MG/ML VIAL IV ONE ×2 (13:31→15:15)
[2020-10-04] MEDS ORDERED: MIDAZOLAM INJ 5 MG/5 ML VIAL IV ONE (13:32)
[2020-10-04] MEDS ORDERED: MORPHINE SULFATE INJ 10 MG/ML VIAL IV ONE (13:32)
[2020-10-04] MEDS ORDERED: MIDAZOLAM INJ 5 MG/5 ML VIAL ONE (13:59)
[2020-10-04] MEDS ORDERED: MORPHINE SULFATE INJ 10 MG/ML VIAL ONE (14:00)
--- NOTE | 2020-10-04 14:26 | RAD ---
Single frontal radiograph] Indication: sp hip reduction Comparison: October 04, 2020 Impression: Right total hip arthroplasty noted status post reduction of the previously dislocated right femoral head. Alignment appears appropriate. No appreciable fracture in this osteopenic patient. Electronically signed by: Chinedu Collins MD 10/04/2020 2:24 PM [facility]
[2020-10-04 16:25] VITALS: BP 123/58; TEMP 97.7; O2SAT 96
--- NOTE | 2020-10-05 08:34 | CONS ---
CHIEF COMPLAINT: Right hip pain. HISTORY OF PRESENT ILLNESS: Balaji is a 64-year-old female with a history of a right total hip replacement that was done by a different physician about 3 years ago. She has now had 2 incidents of dislocation. This time, she was leaning over the bed when she felt the acute onset of pain and inability to bear weight. She was brought by ambulance to the Emergency Room and an attempt at reduction was performed by the on duty physician. Unfortunately, that was unsuccessful and he called me. The patient complains of pain in the leg, but no radiation of pain and no neurologic symptoms. She denies any other injury associated with this. As stated above, this is her second dislocation. PAST MEDICAL HISTORY: 1. Hypertension. 2. Thyroid disease. 3. Asthma. CURRENT MEDICATIONS: 1. Tramadol. 2. Desvenlafaxine. 3. Fluticasone. 4. Gabapentin. 5. Hydrochlorothiazide. 6. Lubiprostone. 7. Magnesium oxide. 8. Potassium. 9. Progesterone. 10. Thyroid medication. 11. Famotidine. 12. Prednisone. SOCIAL HISTORY: The patient does not drink, smoke or use any illicit drugs. REVIEW OF SYSTEMS: Negative except as indicated in the History of Present Illness. PHYSICAL EXAMINATION: MENTAL STATUS: The patient is awake, alert, and is able to give a good history and participate in the physical. The patient is oriented to person, place, time, and situation. Mrs. Mirandas daughter is here with her in the emergency department. SKIN: Normal tone and turgor. HEENT: Normocephalic, atraumatic. Pupils equal, round and reactive. Mucosal membranes are moist. NECK: Normal range of motion. No thyromegaly, no lymphadenopathy. MUSCULOSKELETAL: Bilateral upper extremities show full active range of motion with no pain. She has no deformity. Sensation is intact. They are warm and well perfused. Pharmacy Helper strength is 5/5. The left lower extremity shows no pain with range of motion of the hip. She has intact sensation. There are no deformities and no malalignment. The leg is warm and well perfused. The skin is intact without evidence of trauma. The right lower extremity shows shortening and slight internal rotation compared to the contralateral side. She has intact sensation distally. She has full range of motion in the ankle and digits. Any range of motion of the hip causes severe discomfort. He has intact pulses distally. There are no outward signs of trauma, no bruising, no skin compromise. RADIOLOGY: X-rays show a superior dislocation of the hip. ASSESSMENT: 1. Hip dislocation. PLAN: I have talked to her about closed reduction and she has consented for that. We discussed the potential for surgical intervention should an attempted closed reduction fail. We additionally discussed the need for surgical intervention if this continues to occur. In that event, she should either return to her original surgeon or she can followup with us on an outpatient basis. Mrs. Mireles and I discussed the use of video during this procedure and my use of those images for possible publication on social media sites for educational purposes without any identifying information such as name, demographic information, tattoos, birthmarks, or other unique identifiers. She signed consent for such images to be taken and used in that manner. PROCEDURE: After obtaining conformed consent, the patient was sedated with morphine and versed. Additional propofol was administered by Ramesh Regalado CRNA, in the ED. The procedure was successful and post reduction x-rays showed concentric reduction of the hip. The patient was monitored and then discharged to home. FOLLOWUP: She will followup with us in clinic and we will consider bracing at that time. We will also consider physical therapy as an option as well. #[id number] [facility]
== END 2020-10-04 16:25 | disposition home or self-care (01) ==
LOC: ER 11:08
DX: T84.020A Dislocation of internal right hip prosthesis, initial encounter (principal); X50.9XXA Other and unspecified overexertion or strenuous movements or postures, initial encounter; J45.909 Unspecified asthma, uncomplicated; I10 Essential (primary) hypertension; E07.9 Disorder of thyroid, unspecified; Z88.0 Allergy status to penicillin; Z79.899 Other long term (current) drug therapy; Y92.9 Unspecified place or not applicable
CPT/HCPCS: 73502; J1170; J2250; J2270; J3490